=== PATIENT | male | born 1935 | race American Indian/Alaskan Native ===

== ENCOUNTER 2018-07-21 08:15 | Inpatient (IN) | payer MEDICARE ==
[2018-07-21] MEDS ORDERED: ZOFRAN ONE (09:44)
[2018-07-21] MEDS ORDERED: NACL 0.9% 1000 ML 1,000 ML IV ONE (09:46)
[2018-07-21] MEDS ORDERED: ZOFRAN IV ONE (09:46)
[2018-07-21] MEDS ORDERED: PROTONIX IV ONE (09:47)
--- NOTE | 2018-07-21 10:04 | XRay Report ---
AP CHEST: HISTORY: Hematemesis AP view of the chest demonstrates a normal mediastinal and cardiac contour with clear lungs and normal bony and soft tissue structures. Eventration of the right hemidiaphragm is suspected. IMPRESSION: Unremarkable AP chest.
--- NOTE | 2018-07-21 10:24 | Emergency Department Report ---
ED General Adult HPI - General Chief complaint: Nausea/Vomiting/Diarrhea Stated complaint: NAUSEA/VOMITING Time Seen by Provider: 07/21/18 09:34 Source: patient, EMS Mode of arrival: Ambulatory Limitations: No Limitations - History of Present Illness Initial comments: Patient presents to emergency department with chief complaint of vomiting blood. Patient states he began to have nausea yesterday and had episode this morning of vomiting dark blood. Patient had another episode of vomiting with dark blood in the emergency department. Patient denies any chest pain states she's never had this happen to him before. Patient is actively vomiting during this interview -: Sudden Severity scale (0 -10): 2 Quality: burning Improves with: none Worsens with: none Associated Symptoms: denies other symptoms Treatments Prior to Arrival: none - Related Data Home Medications Medication Instructions Recorded Confirmed Last Taken Losartan [Cozaar] 50 mg PO QDAY 07/21/18 07/21/18 07/20/18 amLODIPine [Norvasc] 10 mg PO DAILY 07/21/18 07/21/18 07/20/18 hydroCHLOROthiazide [HCTZ] 25 mg PO QDAY 07/21/18 07/21/18 07/20/18 Allergies Allergy/AdvReac Type Severity Reaction Status Date / Time shellfish derived Allergy Anaphylaxis Verified 07/21/18 11:38 ED Review of Systems ROS: Stated complaint: NAUSEA/VOMITING Other details as noted in HPI Comment: All other systems reviewed and negative Constitutional: denies: chills, fever Eyes: denies: eye pain, eye discharge, vision change ENT: denies: ear pain, throat pain Respiratory: denies: cough, shortness of breath, wheezing Cardiovascular: denies: chest pain, palpitations Endocrine: no symptoms reported Gastrointestinal: abdominal pain. denies: nausea, diarrhea Genitourinary: denies: urgency, dysuria Musculoskeletal: denies: back pain, joint swelling, arthralgia Skin: denies: rash, lesions Neurological: denies: headache, weakness, paresthesias Psychiatric: denies: anxiety, depression Hematological/Lymphatic: denies: easy bleeding, easy bruising ED Past Medical Hx - Past Medical History Previous Medical History?: Yes Hx Hypertension: Yes - Surgical History Past Surgical History?: No - Social History Smoking Status: Never Smoker Substance Use Type: Alcohol - Medications Home Medications: Home Medications Medication Instructions Recorded Confirmed Last Taken Type Losartan [Cozaar] 50 mg PO QDAY 07/21/18 07/21/18 07/20/18 History amLODIPine [Norvasc] 10 mg PO DAILY 07/21/18 07/21/18 07/20/18 History hydroCHLOROthiazide [HCTZ] 25 mg PO QDAY 07/21/18 07/21/18 07/20/18 History ED Physical Exam - General Limitations: No Limitations General appearance: alert, in no apparent distress - Head Head exam: Present: atraumatic, normocephalic - Eye Eye exam: Present: normal appearance, PERRL, EOMI - ENT ENT exam: Present: mucous membranes moist - Neck Neck exam: Present: normal inspection - Respiratory Respiratory exam: Present: normal lung sounds bilaterally. Absent: respiratory distress, wheezes, rales - Cardiovascular Cardiovascular Exam: Present: regular rate, normal rhythm. Absent: systolic murmur, diastolic murmur, rubs, gallop - GI/Abdominal GI/Abdominal exam: Present: soft, tenderness (tenderness palpation of the epigastric region and left lower quadrant), normal bowel sounds. Absent: distended - Rectal Rectal exam: Present: deferred - Extremities Exam Extremities exam: Present: normal inspection - Back Exam Back exam: Present: normal inspection - Neurological Exam Neurological exam: Present: alert, oriented X3 - Psychiatric Psychiatric exam: Present: normal affect, normal mood - Skin Skin exam: Present: warm, dry, intact, normal color. Absent: rash ED Course Vital Signs 07/21/18 07/21/18 07/21/18 08:48 08:58 09:00 Temperature 98.2 F Pulse Rate 80 86 83 Respiratory 16 14 20 Rate Blood Pressure Blood Pressure 132/83 [Left] O2 Sat by Pulse 96 98 Oximetry 07/21/18 07/21/18 07/21/18 09:15 09:31 09:45 Temperature Pulse Rate 84 81 83 Respiratory 17 25 H 14 Rate Blood Pressure 132/83 132/83 132/83 Blood Pressure [Left] O2 Sat by Pulse 97 96 96 Oximetry 07/21/18 07/21/18 07/21/18 10:09 10:15 10:31 Temperature Pulse Rate 74 81 80 Respiratory 22 13 14 Rate Blood Pressure 132/83 132/83 128/73 Blood Pressure [Left] O2 Sat by Pulse 97 100 98 Oximetry 07/21/18 07/21/18 07/21/18 10:45 11:00 11:15 Temperature Pulse Rate 79 79 80 Respiratory 12 13 14 Rate Blood Pressure 128/73 132/76 132/76 Blood Pressure [Left] O2 Sat by Pulse 98 96 99 Oximetry 07/21/18 07/21/18 07/21/18 11:31 11:45 12:00 Temperature Pulse Rate 87 84 86 Respiratory 12 10 L 13 Rate Blood Pressure 132/76 132/76 138/64 Blood Pressure [Left] O2 Sat by Pulse 98 98 93 Oximetry 07/21/18 07/21/18 07/21/18 12:15 12:31 12:45 Temperature Pulse Rate 86 85 96 H Respiratory 14 13 15 Rate Blood Pressure 138/64 138/64 138/64 Blood Pressure [Left] O2 Sat by Pulse 98 97 99 Oximetry ED Medical Decision Making - Lab Data Result diagrams: 07/21/18 10:12 07/21/18 10:12 Lab Results 07/21/18 07/21/18 07/21/18 Range/Units 10:12 10:12 10:12 WBC 5.7 (4.5-11.0) K/mm3 RBC 4.76 (3.65-5.03) M/mm3 Hgb 15.4 H (11.8-15.2) gm/dl Hct 46.5 H (35.5-45.6) % MCV 98 H (84-94) fl MCH 33 H (28-32) pg MCHC 33 (32-34) % RDW 14.2 (13.2-15.2) % Plt Count 198 (140-440) K/mm3 Lymph % (Auto) 28.9 (13.4-35.0) % [place] % (Auto) 6.9 (0.0-7.3) % Eos % (Auto) 1.5 (0.0-4.3) % Baso % (Auto) 0.4 (0.0-1.8) % Lymph # 1.7 (1.2-5.4) K/mm3 [place] # 0.4 (0.0-0.8) K/mm3 Eos # 0.1 (0.0-0.4) K/mm3 Baso # 0.0 (0.0-0.1) K/mm3 Seg Neutrophils % 62.3 (40.0-70.0) % Seg Neutrophils # 3.6 (1.8-7.7) K/mm3 PT 12.2 (12.2-14.9) Sec. INR 0.87 (0.87-1.13) APTT 22.2 L (24.2-36.6) Sec. Sodium 143 (137-145) mmol/L Potassium 3.5 L (3.6-5.0) mmol/L Chloride 95.1 L (98-107) mmol/L Carbon Dioxide 28 (22-30) mmol/L Anion Gap 23 mmol/L BUN 8 L (9-20) mg/dL Creatinine 1.0 (0.8-1.5) mg/dL Estimated GFR > 60 ml/min BUN/Creatinine Ratio 8 % Glucose 134 H (75-100) mg/dL Calcium 9.1 (8.4-10.2) mg/dL Phosphorus 2.70 (2.5-4.5) mg/dL Magnesium 2.20 (1.7-2.3) mg/dL Total Bilirubin 0.60 (0.1-1.2) mg/dL AST 14 (5-40) units/L ALT 11 (7-56) units/L Alkaline Phosphatase 57 (35-129) units/L Troponin T < 0.010 (0.00-0.029) ng/mL NT-Pro-B Natriuret Pep 17.18 (0-900) pg/mL Total Protein 7.0 (6.3-8.2) g/dL Albumin 4.4 (3.9-5) g/dL Albumin/Globulin Ratio 1.7 % Lipase (13-60) units/L Blood Type Antibody Screen 07/21/18 07/21/18 Range/Units 10:12 10:12 WBC (4.5-11.0) K/mm3 RBC (3.65-5.03) M/mm3 Hgb (11.8-15.2) gm/dl Hct (35.5-45.6) % MCV (84-94) fl MCH (28-32) pg MCHC (32-34) % RDW (13.2-15.2) % Plt Count (140-440) K/mm3 Lymph % (Auto) (13.4-35.0) % [place] % (Auto) (0.0-7.3) % Eos % (Auto) (0.0-4.3) % Baso % (Auto) (0.0-1.8) % Lymph # (1.2-5.4) K/mm3 [place] # (0.0-0.8) K/mm3 Eos # (0.0-0.4) K/mm3 Baso # (0.0-0.1) K/mm3 Seg Neutrophils % (40.0-70.0) % Seg Neutrophils # (1.8-7.7) K/mm3 PT (12.2-14.9) Sec. INR (0.87-1.13) APTT (24.2-36.6) Sec. Sodium (137-145) mmol/L Potassium (3.6-5.0) mmol/L Chloride (98-107) mmol/L Carbon Dioxide (22-30) mmol/L Anion Gap mmol/L BUN (9-20) mg/dL Creatinine (0.8-1.5) mg/dL Estimated GFR ml/min BUN/Creatinine Ratio % Glucose (75-100) mg/dL Calcium (8.4-10.2) mg/dL Phosphorus (2.5-4.5) mg/dL Magnesium (1.7-2.3) mg/dL Total Bilirubin (0.1-1.2) mg/dL AST (5-40) units/L ALT (7-56) units/L Alkaline Phosphatase (35-129) units/L Troponin T (0.00-0.029) ng/mL NT-Pro-B Natriuret Pep (0-900) pg/mL Total Protein (6.3-8.2) g/dL Albumin (3.9-5) g/dL Albumin/Globulin Ratio % Lipase 13 (13-60) units/L Blood Type O POSITIVE Antibody Screen Negative - Medical Decision Making discussed results with patient and family IV Protonix drip started as well as a bolus of Protonix Critical Care Time: Yes Critical care time in (mins) excluding proc time.: 35 Critical care attestation.: If time is entered above; I have spent that time in minutes in the direct care of this critically ill patient, excluding procedure time. ED Disposition Clinical Impression: Hematemesis Disposition: OP ADMIT IP TO THIS HOSP Is pt being admited?: Yes Does the pt Need Aspirin: No Condition: Fair Referrals: LIV LLANOS MD [Primary Care Provider] - 3-5 Days
[2018-07-21 10:32] LABS: Basophils % (Auto) 0.4 % (0.0-1.8); Eosinophils # (Auto) 0.1 K/mm3 (0.0-0.4); Eosinophils % (Auto) 1.5 % (0.0-4.3); Hematocrit 46.5 % (35.5-45.6); Hemoglobin 15.4 gm/dl (11.8-15.2); Lymphocytes # (Auto) 1.7 K/mm3 (1.2-5.4); Lymphocytes % (Auto) 28.9 % (13.4-35.0); Mean Corpuscular HGB Conc 33 % (32-34); Mean Corpuscular Volume 98 fl (84-94); Monocytes # (Auto) 0.4 K/mm3 (0.0-0.8); Monocytes % (Auto) 6.9 % (0.0-7.3); Platelet Count 198 K/mm3 (140-440); Red Blood Count 4.76 M/mm3 (3.65-5.03); Red Cell Distribution Width 14.2 % (13.2-15.2)
[2018-07-21 10:42] LABS: INR 0.87 (0.87-1.13)
[2018-07-21 10:43] LABS: Partial Thromboplastin Time 22.2 Sec. (24.2-36.6)
[2018-07-21 10:57] LABS: Alanine Aminotransferase 11 units/L (7-56); Albumin 4.4 g/dL (3.9-5); BUN/Creatinine Ratio 8; Blood Urea Nitrogen 8 mg/dL (9-20); Calcium 9.1 mg/dL (8.4-10.2); Hemolysis Index 14
--- NOTE | 2018-07-21 11:03 | Cat Scan Report ---
CT ABDOMEN PELVIS WITHOUT CONTRAST: HISTORY: abdominal pain. COMPARISON: none. TECHNIQUE: Helical CT in 1.25mm intervals without IV contrast. Sagittal and coronal reconstructions. FINDINGS: Lung bases: Normal. Liver: Normal. Biliary system: Normal. Pancreas: Normal. Spleen: Normal. Kidneys/ureters/bladder: Bilateral renal cysts are identified, left greater than right. The largest cyst measures 4.8 cm at the superior pole of the left kidney. No obvious renal mass, nephrolithiasis or hydronephrosis. The ureters and bladder are unremarkable. There are multiple radiotherapy beads in the prostate bed. Adrenal glands: Normal. Aorta: There are moderate distal calcifications. No aneurysm. Intestines: Within normal limits. Appendix: Normal. Ascites: None. Adenopathy: None. Musculoskeletal: Mild osteopenia and degenerative changes in the spine. No fracture or suspicious bony lesion is identified. A small left inguinal hernia containing fat is identified. IMPRESSION: No acute process is identified. Bilateral renal cysts. Mild osteopenia and degenerative changes in the spine. Small left inguinal hernia containing fat.
[2018-07-21] MEDS: PROTONIX 80 MG in NACL 0.9% 100 ML IV SCH ×2 (12:00→21:28)
[2018-07-21 15:23] LABS: Bilirubin,Urine NEG (Negative); Blood,Urine NEG (Negative); Color,Urine Yellow (Yellow); Urobilinogen,Urine < 2.0 mg/dL (<2.0); WBC,Urine < 1.0 /HPF (0.0-6.0)
[2018-07-21] MEDS ORDERED: DILAUDID IV PRN (19:22)
[2018-07-21] MEDS ORDERED: TYLENOL PO PRN (19:22)
[2018-07-21] MEDS ORDERED: ZOFRAN IV PRN (19:22)
[2018-07-21] MEDS ORDERED: SODIUM CHLORIDE FLUSH SYRINGE 10 ML IV PRN (19:22)
[2018-07-21] MEDS ORDERED: REGLAN IV PRN (19:22)
[2018-07-21] MEDS ORDERED: D5NS 1,000 ML IV SCH (20:00)
[2018-07-21 20:04] LABS: Hematocrit 42.1 % (35.5-45.6); Hemoglobin 14.3 gm/dl (11.8-15.2)
[2018-07-21] MEDS ORDERED: SODIUM CHLORIDE FLUSH SYRINGE 10 ML IV SCH (22:00)
[2018-07-22 00:44] LABS: Hematocrit 41.1 % (35.5-45.6); Hemoglobin 13.6 gm/dl (11.8-15.2)
[2018-07-22 05:13] LABS: Basophils % (Auto) 0.4 % (0.0-1.8); Eosinophils # (Auto) 0.1 K/mm3 (0.0-0.4); Eosinophils % (Auto) 1.4 % (0.0-4.3); Hematocrit 42.2 % (35.5-45.6); Hemoglobin 13.9 gm/dl (11.8-15.2); Lymphocytes # (Auto) 1.9 K/mm3 (1.2-5.4); Lymphocytes % (Auto) 33.4 % (13.4-35.0); Mean Corpuscular HGB Conc 33 % (32-34); Mean Corpuscular Volume 98 fl (84-94); Monocytes # (Auto) 0.6 K/mm3 (0.0-0.8); Monocytes % (Auto) 10.8 % (0.0-7.3); Platelet Count 159 K/mm3 (140-440); Red Blood Count 4.31 M/mm3 (3.65-5.03); Red Cell Distribution Width 14.1 % (13.2-15.2)
[2018-07-22 05:36] LABS: Alanine Aminotransferase 9 units/L (7-56); Albumin 3.5 g/dL (3.9-5); BUN/Creatinine Ratio 10; Blood Urea Nitrogen 9 mg/dL (9-20); Calcium 8.2 mg/dL (8.4-10.2); Hemolysis Index 14
--- NOTE | 2018-07-22 05:53 | Event Note ---
Date: 07/21/18 See Dictated H/p in reports Upper GI Bleed Monitor H/h IV Protonix drip
[2018-07-22] MEDS ORDERED: KCL 10MEQ/100ML 10 MEQ/100 ML BAG IV ONE ×2 (06:33→10:00)
[2018-07-22 06:37] VITALS: BP 163/71
--- NOTE | 2018-07-22 06:50 | History and Physical Report ---
CHIEF COMPLAINT: Vomiting blood since morning. HISTORY OF PRESENT ILLNESS: An 83-year-old male with a history of hypertension, went to a restaurant yesterday and felt that the food was not tasting right. After that, the patient had an episode of vomiting, and this morning, the patient had 2 episodes of vomiting dark blood. Also, the patient has epigastric pain. No chest pain. Never had vomiting blood before. No exacerbating or relieving factors. The patient did not take any Goody powders or BC powders or nonsteroidal anti-inflammatories. No fever or chills. No shortness of breath. No syncope. PAST MEDICAL HISTORY: Significant for hypertension. CURRENT MEDICATIONS: Losartan 50 mg once a day, hydrochlorothiazide 25 mg once a day, and amlodipine 10 mg once a day. ALLERGIES: SHELLFISH. PAST SURGICAL HISTORY: None. SOCIAL HISTORY: Does not smoke. Alcohol occasionally. FAMILY HISTORY: Hypertension. REVIEW OF SYSTEMS: Significant for vomiting blood, dark to black in color. The patient did not know that it was blood. No melena. No dark stools. Epigastric pain present. Otherwise, review of systems negative. No syncope, no seizures. A 14-point review of systems done. PHYSICAL EXAMINATION: GENERAL: Elderly male lying in bed comfortably, surrounded by family. VITAL SIGNS: Blood pressure is 162/75, temperature is 98.7, pulse is 76, respirations are 13. HEENT: Unremarkable. Normal conjunctival color. NECK: Supple, no lymphadenopathy, no thyromegaly. LUNGS: Clear to auscultation and percussion. Good air entry. CARDIOVASCULAR SYSTEM: S1, S2 heard. No gallop, no murmur, no rub. Apical impulse in left fifth intercostal space and midclavicular line. ABDOMEN: Soft and benign. No hepatosplenomegaly, no guarding, no rigidity. Hernial orifices are normal. Occult blood positive. EXTREMITIES: Good pedal pulses. No pedal edema. CENTRAL NERVOUS SYSTEM: Alert and oriented x 4. No focal deficits. Power is 5/5 in all 4 extremities. SKIN: Normal. LABORATORY DATA: Significant for white count of 5700, H and H are 15.4 and 46.5, platelet count is 198,000. Sodium is 143, potassium is 3.5, BUN and creatinine are 18 and 1.0. Glucose is 134. Liver function tests are normal. Albumin is 4.4, normal. Urine is normal. DIAGNOSTIC DATA: Chest x-ray and abdominal CT; abdominal CT shows no acute process, bilateral renal cysts. Mild osteopenia and degenerative changes in the spine. Small left inguinal hernia containing fat. Chest x-ray, no acute findings. ASSESSMENT AND PLAN: 1. Acute upper gastrointestinal bleed. The patient initiated on IV Protonix and IV fluids. GI consult requested. Monitor hemoglobin and hematocrit every 6 hours. Transfuse if necessary. 2. Hypertension. The patient initiated on Catapres patch. 3. Hypokalemia, mild, supplemented by IV potassium. 4. Deep venous thrombosis prophylaxis, SCDs. JOB# [id number] ISRA[place]/ALEIDA KRAMER
[2018-07-22] MEDS ORDERED: CATAPRES-TTS PATCH TD SCH (07:00)
[2018-07-22 08:05] LABS: Hematocrit 41.7 % (35.5-45.6); Hemoglobin 13.8 gm/dl (11.8-15.2)
--- NOTE | 2018-07-22 09:21 | Progress Note ---
Assessment and Plan Assessment and plan: Upper GI bleed , hematemesis continue protonix drip Monitor H/H. stable so far. No transfusion needed Hypertension. PO meds on hold Started on Clonidine patch Hypokalemia. Replace iv Full code status History Interval history: Vomited dark blood several times Hospitalist Physical - Physical exam Narrative exam: GEN: Not in acute distress, lying in bed HEENT: Normocephalic, atraumatic, Neck: supple, No JVD Lungs: Clear to auscultation bilaterally, no wheeze Heart:S1 and S2 regular, no murmurs, rubs or gallop, Abd:soft, non tender, non distended, normal bowel sounds Ext: No edema, no clubbing or cyanosis Neuro: AAO x 3, moves all extremities, no focal neurological signs - Constitutional Vitals: Temp Pulse Resp BP Pulse Ox 98.7 F 59 L 10 L 163/71 96 07/22/18 04:00 07/22/18 06:30 07/22/18 06:30 07/22/18 06:30 07/22/18 06:30 Results - Labs CBC & Chem 7: 07/22/18 07:48 07/22/18 04:37 Labs: Laboratory Last Values WBC 5.7 K/mm3 (4.5-11.0) 07/22/18 04:37 RBC 4.31 M/mm3 (3.65-5.03) 07/22/18 04:37 Hgb 13.8 gm/dl (11.8-15.2) 07/22/18 07:48 Hct 41.7 % (35.5-45.6) 07/22/18 07:48 MCV 98 fl (84-94) H 07/22/18 04:37 MCH 32 pg (28-32) 07/22/18 04:37 MCHC 33 % (32-34) 07/22/18 04:37 RDW 14.1 % (13.2-15.2) 07/22/18 04:37 Plt Count 159 K/mm3 (140-440) 07/22/18 04:37 Lymph % (Auto) 33.4 % (13.4-35.0) 07/22/18 04:37 [place] % (Auto) 10.8 % (0.0-7.3) H 07/22/18 04:37 Eos % (Auto) 1.4 % (0.0-4.3) 07/22/18 04:37 Baso % (Auto) 0.4 % (0.0-1.8) 07/22/18 04:37 Lymph # 1.9 K/mm3 (1.2-5.4) 07/22/18 04:37 [place] # 0.6 K/mm3 (0.0-0.8) 07/22/18 04:37 Eos # 0.1 K/mm3 (0.0-0.4) 07/22/18 04:37 Baso # 0.0 K/mm3 (0.0-0.1) 07/22/18 04:37 Seg Neutrophils % 54.0 % (40.0-70.0) 07/22/18 04:37 Seg Neutrophils # 3.1 K/mm3 (1.8-7.7) 07/22/18 04:37 PT 12.2 Sec. (12.2-14.9) 07/21/18 10:12 INR 0.87 (0.87-1.13) 07/21/18 10:12 APTT 22.2 Sec. (24.2-36.6) L 07/21/18 10:12 Sodium 139 mmol/L (137-145) 07/22/18 04:37 Potassium 3.3 mmol/L (3.6-5.0) L 07/22/18 04:37 Chloride 101.2 mmol/L (98-107) 07/22/18 04:37 Carbon Dioxide 28 mmol/L (22-30) 07/22/18 04:37 Anion Gap 13 mmol/L 07/22/18 04:37 BUN 9 mg/dL (9-20) 07/22/18 04:37 Creatinine 0.9 mg/dL (0.8-1.5) 07/22/18 04:37 Estimated GFR > 60 ml/min 07/22/18 04:37 BUN/Creatinine Ratio 10 % 07/22/18 04:37 Glucose 104 mg/dL (75-100) H 07/22/18 04:37 Calcium 8.2 mg/dL (8.4-10.2) L 07/22/18 04:37 Phosphorus 2.70 mg/dL (2.5-4.5) 07/21/18 10:12 Magnesium 2.20 mg/dL (1.7-2.3) 07/21/18 10:12 Total Bilirubin 1.10 mg/dL (0.1-1.2) 07/22/18 04:37 AST 13 units/L (5-40) 07/22/18 04:37 ALT 9 units/L (7-56) 07/22/18 04:37 Alkaline Phosphatase 51 units/L (35-129) 07/22/18 04:37 Troponin T < 0.010 ng/mL (0.00-0.029) 07/21/18 10:12 NT-Pro-B Natriuret Pep 17.18 pg/mL (0-900) 07/21/18 10:12 Total Protein 5.9 g/dL (6.3-8.2) L 07/22/18 04:37 Albumin 3.5 g/dL (3.9-5) L 07/22/18 04:37 Albumin/Globulin Ratio 1.5 % 07/22/18 04:37 Lipase 13 units/L (13-60) 07/21/18 10:12 Urine Color Yellow (Yellow) 07/21/18 15:00 Urine Turbidity Clear (Clear) 07/21/18 15:00 Urine pH 8.0 (5.0-7.0) H 07/21/18 15:00 Ur Specific [place] 1.012 (1.003-1.030) 07/21/18 15:00 Urine Protein 30 mg/dl mg/dL (Negative) 07/21/18 15:00 Urine Glucose (UA) Neg mg/dL (Negative) 07/21/18 15:00 Urine Ketones 20 mg/dL (Negative) 07/21/18 15:00 Urine Blood Neg (Negative) 07/21/18 15:00 Urine Nitrite Neg (Negative) 07/21/18 15:00 Urine Bilirubin Neg (Negative) 07/21/18 15:00 Urine Urobilinogen < 2.0 mg/dL (<2.0) 07/21/18 15:00 Ur Leukocyte Esterase Neg (Negative) 07/21/18 15:00 Urine WBC (Auto) < 1.0 /HPF (0.0-6.0) 07/21/18 15:00 Urine RBC (Auto) 1.0 /HPF (0.0-6.0) 07/21/18 15:00 Blood Type O POSITIVE 07/21/18 10:12 Antibody Screen Negative 07/21/18 10:12
--- NOTE | 2018-07-22 12:11 | Gastroenterology Consultation ---
Addendum entered and electronically signed by ARIEL BENSON MD 07/22/18 19:39: I have personally interviewed and examined the patient. I agree with the above A/P. OK to d/c the patient home and f/u with us in the clinic as the acute GI issues have resolved. Original Note: History of Present Illness - Reason for Consult Consult date: 07/22/18 UGIB Requesting physician: BENJAMÍN GUARDADO - History of Present Illness Patient is a 83 y/o male with PMH of HTN who was admitted for possible UGIB to which GI has been consulted. This morning patient was sitting up in bed w/o acute distress and family at bedside. He reports 4 episodes of vomiting up dark emesis yesterday (unsure if it was dark brown vs black). He states he ate peanuts the day before which he believes made his stomach upset, but reports feeling better now with N/V improved (no episodes today) and is requesting to eat. No hematemesis, melena, or hematochezia. Last BM was on Friday with brown stool. Denies fever, CP, SOB, dizziness, abd pain, dysphagia, diarrhea, or constipation. No NSAID use. No hx of GI bleeding, PUD, or liver disease. No previous EGD. Past History Past Medical History: hypertension Past Surgical History: No surgical history Social history: other (occasional alcohol). denies: smoking Family history: hypertension Medications and Allergies Allergies Allergy/AdvReac Type Severity Reaction Status Date / Time shellfish derived Allergy Anaphylaxis Verified 07/21/18 11:38 Home Medications Medication Instructions Recorded Confirmed Last Taken Type Losartan [Cozaar] 50 mg PO QDAY 07/21/18 07/21/18 07/20/18 History amLODIPine [Norvasc] 10 mg PO DAILY 07/21/18 07/21/18 07/20/18 History hydroCHLOROthiazide [HCTZ] 25 mg PO QDAY 07/21/18 07/21/18 07/20/18 History Active Meds: Active Medications Acetaminophen (Tylenol) 650 mg PO Q4H PRN PRN Reason: Pain MILD(1-3)/Fever >100.5/EATON Clonidine HCl (Catapres-Tts Patch) 0.1 mg TD We CHAZ Hydromorphone HCl (Dilaudid) 0.5 mg IV Q3H PRN PRN Reason: Pain , Severe (7-10) Pantoprazole Sodium 80 mg/ (Sodium Chloride) 100 mls @ 10 mls/hr IV DIRECT CHAZ Last Admin: 07/21/18 21:28 Dose: 8 mg/hr, 10 mls/hr Documented by: Dextrose/Sodium Chloride (D5ns) 1,000 mls @ 100 mls/hr IV DIRECT CHAZ Last Admin: 07/21/18 21:31 Dose: 100 mls/hr Documented by: Metoclopramide HCl (Reglan) 10 mg IV Q6H PRN PRN Reason: Nausea And Vomiting Ondansetron HCl (Zofran) 4 mg IV Q3H PRN PRN Reason: Nausea And Vomiting Sodium Chloride (Sodium Chloride Flush Syringe 10 Ml) 10 ml IV BID CHAZ Sodium Chloride (Sodium Chloride Flush Syringe 10 Ml) 10 ml IV PRN PRN PRN Reason: LINE FLUSH Stop: 07/22/18 19:21 medications reviewed/updated as required Review of Systems - Review of Systems Gastrointestinal: vomiting (dark emesis) Exam - Constitutional Vital Signs: Temp Pulse Resp BP Pulse Ox 97.6 F 59 L 10 L 163/71 96 07/22/18 12:00 07/22/18 06:30 07/22/18 06:30 07/22/18 06:30 07/22/18 06:30 General appearance: no acute distress - EENT Eyes: PERRL, EOM intact ENT: hearing intact - Respiratory Respiratory: bilateral: CTA - Cardiovascular Rhythm: regular Heart Sounds: Present: S1 & S2 - Gastrointestinal General gastrointestinal: Present: soft, non-tender, non-distended, normal bowel sounds - Neurologic Neurological: alert and oriented x3 - Labs CBC & Chem 7: 07/22/18 07:48 07/22/18 04:37 Lab Results: Laboratory Results - last 24 hr 07/21/18 07/21/18 07/22/18 15:00 19:49 00:31 WBC RBC Hgb 14.3 13.6 Hct 42.1 41.1 MCV MCH MCHC RDW Plt Count Lymph % (Auto) [place] % (Auto) Eos % (Auto) Baso % (Auto) Lymph # [place] # Eos # Baso # Seg Neutrophils % Seg Neutrophils # Sodium Potassium Chloride Carbon Dioxide Anion Gap BUN Creatinine Estimated GFR BUN/Creatinine Ratio Glucose Calcium Total Bilirubin AST ALT Alkaline Phosphatase Total Protein Albumin Albumin/Globulin Ratio Urine Color Yellow Urine Turbidity Clear Urine pH 8.0 H Ur Specific [place] 1.012 Urine Protein 30 mg/dl Urine Glucose (UA) Neg Urine Ketones 20 Urine Blood Neg Urine Nitrite Neg Urine Bilirubin Neg Urine Urobilinogen < 2.0 Ur Leukocyte Esterase Neg Urine WBC (Auto) < 1.0 Urine RBC (Auto) 1.0 07/22/18 07/22/18 07/22/18 04:37 04:37 07:48 WBC 5.7 RBC 4.31 Hgb 13.9 13.8 Hct 42.2 41.7 MCV 98 H MCH 32 MCHC 33 RDW 14.1 Plt Count 159 Lymph % (Auto) 33.4 [place] % (Auto) 10.8 H Eos % (Auto) 1.4 Baso % (Auto) 0.4 Lymph # 1.9 [place] # 0.6 Eos # 0.1 Baso # 0.0 Seg Neutrophils % 54.0 Seg Neutrophils # 3.1 Sodium 139 Potassium 3.3 L Chloride 101.2 Carbon Dioxide 28 Anion Gap 13 BUN 9 Creatinine 0.9 Estimated GFR > 60 BUN/Creatinine Ratio 10 Glucose 104 H Calcium 8.2 L Total Bilirubin 1.10 AST 13 ALT 9 Alkaline Phosphatase 51 Total Protein 5.9 L Albumin 3.5 L Albumin/Globulin Ratio 1.5 Urine Color Urine Turbidity Urine pH Ur Specific [place] Urine Protein Urine Glucose (UA) Urine Ketones Urine Blood Urine Nitrite Urine Bilirubin Urine Urobilinogen Ur Leukocyte Esterase Urine WBC (Auto) Urine RBC (Auto) Assessment and Plan 1.UGIB? -INR 0.87 -BUN 9 -WBC, LFTs, and lipase WNL -abd CT w/o acute process -H/H 13.8/41.7-stable -continue to monitor H/H and transfuse as needed -patient reports vomiting up dark emesis x 4 episodes yesterday after eating peanuts the day before. No hematemesis, melena, or hematochezia. Last BM on Friday with brown stool per pt. -currently HD stable with no active signs of bleeding this am -etiology unclear -clinically, patient reports feeling better today with N/V now improved. Denies abd pain. Requesting to eat. -no plans for EGD at this time given no clinical evidence of significant GI bleeding (consider based on progress) -okay to start on clear liquids today and advance as tolerated -continue PPI and supportive care -if no further signs of bleeding and labs stable in am, patient okay to be d/c home on daily PPI with f/u in clinic
[2018-07-22 14:34] LABS: Hematocrit 41.5 % (35.5-45.6); Hemoglobin 13.8 gm/dl (11.8-15.2)
--- NOTE | 2018-07-22 16:40 | Discharge Summary ---
Providers - Providers Date of Admission: 07/21/18 13:23 Date of discharge: 07/22/18 Attending physician: WILDER GATICA 07/21/18 19:22 Consult to Physician [CONS] Routine Comment: Consulting Provider: MARICHUY DAVE Physician Instructions: Reason For Exam: Upper GI Bleed Primary care physician: LIV LLANOS Hospitalization Condition: Fair Hospital course: Patient is 83 yo with hypertension. He presented after vomiting dark blood twice. he was evaluated in ED, and his hemoglobin was 15.3. he was admitted and GI consulted. Vomiting subsided and H/H remained stable therefore GI Physician recommended dc home on Protonix, after evaluating him. Disposition: DC-01 TO HOME OR SELFCARE - Discharge Diagnoses (1) Hypertension Status: Acute (2) Hematemesis Status: Acute Core Measure Documentation - Palliative Care Palliative Care/ Comfort Measures: Not Applicable - Core Measures Any of the following diagnoses?: none Exam - Constitutional Vitals: Temp Pulse Resp BP Pulse Ox 97.6 F 88 10 L 163/71 96 07/22/18 12:00 07/22/18 10:00 07/22/18 06:30 07/22/18 06:30 07/22/18 06:30 Plan Activity: no restrictions Diet: other (Soft diet , advance as tolerated to Regular diet) Additional Instructions: 1.Follow up with PCP in 1 week. 2.Follow up with ALONZO Paniagua in 1 week. 3.Return to Emergency Department if any dark vomitus Follow up with: LIV LLANOS MD [Primary Care Provider] - 7 Days Prescriptions: Pantoprazole [Protonix] 40 mg PO QDAY #30 tablet Promethazine [Phenergan TAB] 25 mg PO Q6HR PRN #20 tab PRN Reason: Nausea
[2018-07-22] MEDS ORDERED: PROTONIX IV SCH (22:00)
== END 2018-07-22 19:14 | disposition home or self-care (01) | DRG 379 ==
LOC: ED 08:15 → IMCU 13:23
PROVIDERS: ADMIT Internal Medicine; ATTEND Internal Medicine
DX: K92.2 Gastrointestinal hemorrhage, unspecified (principal); E87.6 Hypokalemia; K92.0 Hematemesis; I10 Essential (primary) hypertension; Z82.49 Family history of ischemic heart disease and other diseases of the circulatory system; Z72.89 Other problems related to lifestyle; Z91.013 Allergy to seafood; Z79.899 Other long term (current) drug therapy
CPT/HCPCS: 36415; 71045; 74176; 80053; 81001; 83690; 83735; 83880; 84100; 84484; 85014; 85018; 85025; 85610; 85730; 86850; 86900; 86901; G0378; C9113; J2405; J3480; J7030; J7042; Q9967